=== PATIENT | female | born 1965 | race Caucasian/White ===

== ENCOUNTER → 2016-08-15 | Outpatient (CLI) | payer OTHER ==
[2015-09-19 14:55] VITALS: BP 104/60
[~2016-08-15] MED LIST: ASPI-482 PO; ATOR40TA PO; CLOP75TA PO; DOCU-109 PO; IBUP-1060 PO; LISI10TA2 PO; METO25TA9 PO; NITR0.4T22 SL; NITR2.5C3 PO; OXYC-323 PO
--- NOTE | 2016-08-15 13:58 | RAD ---
DATE: 08/15/2016 EXAM: DIGITAL DIAGNOSTIC BILATERAL HISTORY: Follow-up right breast nodule COMPARISON: 05/21/2015, 04/30/2015 CAD: This study was interpreted with the benefit of Computerized Aided Detection (CAD). The breast parenchyma shows scattered fibroglandular densities. Breast parenchyma level B. FINDINGS: A faint nodular opacity projected over the medial aspect of the right breast on the cc view is unchanged. Its stability over the last 15 months favors a benign etiology. Mammographic follow-up in one year is suggested. No new or enlarging breast densities are seen. Minimal benign type calcifications are present bilaterally. No suspicious microcalcifications have developed. IMPRESSION: Stable mammograms without evidence of malignancy. BI-RADS 3-probably benign findings RECOMMENDED FOLLOW-UP: 12M 12 MONTH FOLLOW-UP PQRS compliance statement: Patient information was entered into a reminder system with a target due date for the next mammogram. Mammography is a sensitive method for finding small breast cancers, but it does not detect them all and is not a substitute for careful clinical examination. A negative mammogram does not negate a clinically suspicious finding and should not result in delay in biopsying a clinically suspicious abnormality. "Our facility is accredited by the [employer] Mammography Program."
== END | disposition home or self-care (01) ==
LOC: MAMMO 13:13
PROVIDERS: ATTEND Internal Medicine
DX: N63 Unspecified lump in breast (principal)
CPT/HCPCS: G0204; 77066

== ENCOUNTER 2017-01-20 09:05 | Inpatient (IN) | payer OTHER ==
[~2017-01-20] VITALS: Ht 175.3 cm; Wt 69.7 kg
[~2017-01-20 09:05] MED LIST changes: +METO-239 PO; -METO25TA9 PO
[2017-01-20] MEDS ORDERED: IV NORMAL SALINE 1000ML BAG 1,000 ML IV SCH (09:18)
[2017-01-20] MEDS ORDERED: ONDANSETRON PF 4 MG/2 ML VIAL. ONE (09:19)
[2017-01-20 09:29] LABS: BASO % 0 % (0-3); EOS % 2 % (0-3); HEMATOCRIT 49.8 % (36.0-47.0); LYMPH # 0.9 x10^3/uL (1.0-4.8); LYMPH % 12 % (24-48); MEAN CORPUSCULAR HEMOGLOBIN 34 pg (25-35); MEAN CORPUSCULAR HGB CONC 34 g/dL (31-37); MEAN CORPUSCULAR VOLUME 99 fL (79-100); MONO % 3 % (0-9); NEUT % 83 % (31-73); PLATELET COUNT 209 x10^3/uL (140-400); RED BLOOD COUNT 5.03 x10^6/uL (3.50-5.40); RED CELL DISTRIBUTION WIDTH 13.4 % (11.5-14.5); WHITE BLOOD COUNT 7.4 x10^3/uL (4.0-11.0)
[2017-01-20] MEDS ORDERED: ASPIRIN CHEWABLE 81 MG TABLET. PO ONE (09:30)
[2017-01-20] MEDS ORDERED: fentaNYL PF VIAL 100 MCG/2 ML VIAL IV PRN (09:30)
--- NOTE | 2017-01-20 09:31 | EKG ---
[facility] [address] [place] [address] Test Date: 2017-01-20 Test Time: 09:13:52 Pat Name: CHRISTI BORJAS Department: Room: Gender: F Endodontic Assistant: : 1965 Requested By: KUNAL SKY Order Number: [id number] Reading MD: Measurements Intervals [place] Rate: 70 P: 47 AL: 132 QRS: 69 QRSD: 76 T: 65 QT: 372 QTc: 404 Interpretive Statements SINUS RHYTHM QRS(T) CONTOUR ABNORMALITY CANNOT RULE OUT ANTEROSEPTAL MYOCARDIAL DAMAGE BORDERLINE ECG No previous ECG available for comparison
[2017-01-20 09:48] LABS: CALCIUM 9.2 mg/dL (8.5-10.1); CREATININE 0.7 mg/dL (0.6-1.0); GFR 88.9; POTASSIUM 3.7 mmol/L (3.5-5.1)
[2017-01-20 09:54] LABS: ALBUMIN/GLOBULIN RATIO 1.1 (1.0-1.7); MAGNESIUM 1.8 mg/dL (1.8-2.4); TOTAL BILIRUBIN 0.6 mg/dL (0.2-1.0); TOTAL PROTEIN 7.6 g/dL (6.4-8.2)
[2017-01-20 10:03] LABS: CKMB MASS 1.6 ng/mL (0.0-3.6)
--- NOTE | 2017-01-20 10:03 | PHYS DOC ---
Past Medical History Past Medical History: High Cholesterol, Hypertension, VT, Other Additional Past Medical Histor: VT X2 LAST ONE 2 YRS AGO Past Surgical History: Hysterectomy, Tonsillectomy, Tubal ligation Alcohol Use: Occasionally Drug Use: None Adult General Chief Complaint Chief Complaint: CHEST PAIN HPI HPI Patient is a 51 year old female who presents with complaint of chest pain. Patient states that her symptoms started approximately 1 hour prior to arrival. Patient states that her symptoms started while she was working. Patient states she suddenly felt pressure-like chest pain and the middle of her chest. Patient has associated shortness of breath and nausea with her symptoms. Patient on arrival in the emergency department had an episode of vomiting. Patient states that her symptoms have improved since her episode of vomiting. The patient stated that her pain at its worse was proximally 5 out of 10. The patient does have history coronary artery disease and has had a myocardial infarction 2 years ago. Patient follows with Dr. Brantley of cardiology. Patient denies any associated fever or abdominal pain. Patient has not taken any medications for her symptoms. Review of Systems Review of Systems Constitutional: Denies fever or chills [] Eyes: Denies change in visual acuity, redness, or eye pain [] HENT: Denies nasal congestion or sore throat [] Respiratory: Shortness of breath[] Cardiovascular: Chest pain[] GI: Nausea, vomiting, denies abdominal pain, bloody stools or diarrhea [] : Denies dysuria or hematuria [] Musculoskeletal: Denies back pain or joint pain [] Integument: Denies rash or skin lesions [] Neurologic: Denies headache, focal weakness or sensory changes [] All other systems were reviewed and found to be within normal limits, except as documented in this note. Current Medications Current Medications Current Medications Medications (Trade) Dose Ordered Sig/Do Start Time Stop Time Status Last Admin Dose Admin Aspirin (Children'S Aspirin) 324 mg 1X ONCE 01/20/17 09:30 01/20/17 09:31 DC 01/20/17 09:46 324 MG Fentanyl Citrate (Fentanyl 2ml Vial) 50 mcg PRN Q15MIN PRN 01/20/17 09:30 01/21/17 09:29 01/20/17 09:48 50 MCG Ondansetron HCl (Zofran) 4 mg STK-MED ONCE 01/20/17 09:19 01/20/17 09:20 DC Sodium Chloride 1,000 ml @ 125 mls/hr Q8H 01/20/17 09:18 01/20/17 17:17 01/20/17 09:44 125 MLS/HR Allergies Allergies Allergies Coded Allergies Type Severity Reaction Last Updated Verified codeine Adverse Reaction Mild 08/02/15 Yes Physical Exam Physical Exam Constitutional: Alert, afebrile, appears in mild discomfort. [] HENT: Normocephalic, atraumatic, bilateral external ears normal, oropharynx moist, no oral exudates, nose normal. [] Eyes: PERRLA, EOMI, conjunctiva normal, no discharge. [] Neck: Normal range of motion, no tenderness, supple, no stridor. [] Cardiovascular:Heart rate regular rhythm, no murmur [] Lungs & Thorax: Bilateral breath sounds clear to auscultation [] Abdomen: Bowel sounds normal, soft, no tenderness, no masses, no pulsatile masses. [] Skin: Warm, dry, no erythema, no rash. [] Back: No tenderness, no CVA tenderness. [] Extremities: No tenderness, no cyanosis, no clubbing, ROM intact, no edema. [] Neurologic: Alert and oriented X 3, normal motor function, normal sensory function, no focal deficits noted. [] Current Patient Data Vital Signs Vital Signs Date Time Temp Pulse Resp B/P (MAP) Pulse Ox O2 Delivery O2 Flow Rate FiO2 01/20/17 09:48 18 95 Room Air 01/20/17 09:10 98.0 77 102/59 (73) 98.0 Lab Values Laboratory Tests Test 01/20/17 09:16 White Blood Count 7.4 x10^3/uL (4.0-11.0) Red Blood Count 5.03 x10^6/uL (3.50-5.40) Hemoglobin 17.0 g/dL (12.0-15.5) H Hematocrit 49.8 % (36.0-47.0) H Mean Corpuscular Volume 99 fL (79-100) Mean Corpuscular Hemoglobin 34 pg (25-35) Mean Corpuscular Hemoglobin Concent 34 g/dL (31-37) Red Cell Distribution Width 13.4 % (11.5-14.5) Platelet Count 209 x10^3/uL (140-400) Neutrophils (%) (Auto) 83 % (31-73) H Lymphocytes (%) (Auto) 12 % (24-48) L Monocytes (%) (Auto) 3 % (0-9) Eosinophils (%) (Auto) 2 % (0-3) Basophils (%) (Auto) 0 % (0-3) Neutrophils # (Auto) 6.2 x10^3uL (1.8-7.7) Lymphocytes # (Auto) 0.9 x10^3/uL (1.0-4.8) L Monocytes # (Auto) 0.2 x10^3/uL (0.0-1.1) Eosinophils # (Auto) 0.1 x10^3/uL (0.0-0.7) Basophils # (Auto) 0.0 x10^3/uL (0.0-0.2) Sodium Level 141 mmol/L (136-145) Potassium Level 3.7 mmol/L (3.5-5.1) Chloride Level 101 mmol/L (98-107) Carbon Dioxide Level 31 mmol/L (21-32) Anion Gap 9 (6-14) Blood Urea Nitrogen 19 mg/dL (7-20) Creatinine 0.7 mg/dL (0.6-1.0) Estimated GFR (Cockcroft-Gault) 88.9 BUN/Creatinine Ratio 27 (6-20) H Glucose Level 95 mg/dL (70-99) Calcium Level 9.2 mg/dL (8.5-10.1) Magnesium Level 1.8 mg/dL (1.8-2.4) Total Bilirubin 0.6 mg/dL (0.2-1.0) Aspartate Amino Transferase (AST) 24 U/L (15-37) Alanine Aminotransferase (ALT) 34 U/L (14-59) Alkaline Phosphatase 91 U/L (46-116) Creatine Kinase 123 U/L (26-192) Creatine Kinase MB (Mass) 1.6 ng/mL (0.0-3.6) Creatine Kinase MB Relative Index 1.3 % (0-4) Troponin I Quantitative < 0.017 ng/mL (0.000-0.055) YT-Fqi-I-Type Natriuretic Peptide 47 pg/mL (0-124) Total Protein 7.6 g/dL (6.4-8.2) Albumin 4.0 g/dL (3.4-5.0) Albumin/Globulin Ratio 1.1 (1.0-1.7) Lipase 116 U/L (73-393) Laboratory Tests 01/20/17 09:16 Laboratory Tests 01/20/17 09:16 EKG EKG Interpreted by me: Heart rate 70, sinus rhythm, normal intervals, normal axis, no acute ST/T-wave abnormalities present[] Radiology/Procedures Radiology/Procedures [facility] [address] [place] [address] IMAGING REPORT Signed PATIENT: CHRISTI BORJAS ACCOUNT: [id number] : 1965 LOCATION: [address] [place] [address] AGE: 51 SEX: F EXAM STATUS: ADM IN ORD. PHYSICIAN: KUNAL SKY MD REASON: chest pain PROCEDURE: PORTABLE CHEST 1V Portable chest, 01/20/2017: History: Chest pain The heart size and pulmonary vascularity are normal. There is a calcified granuloma in the left base. No acute infiltrate is seen. There is no evidence of pleural fluid. IMPRESSION: No acute cardiopulmonary abnormality is detected. DICTATED and SIGNED BY: EPI VILLAR MD DATE: 01/20/17 1022 CC: KUNAL SKY MD; RAMIN CRABTREE MD ~ [] Course & Med Decision Making Course & Med Decision Making Pertinent Labs and Imaging studies reviewed. (See chart for details) HEART score is 4. Patient's initial troponin level negative. Given patient's history and presence of typical symptoms for angina, the patient will need admission to the hospital for rule out of myocardial infarction. I spoke with Dr. Brantley of cardiology who agreed with initial management and will follow with patient in hospital. I spoke with Dr. Crabtree who accepted care patient in hospital. Dragon Disclaimer Dragon Disclaimer This electronic medical record was generated, in whole or in part, using a voice recognition dictation system. Departure Departure Impression: Primary Impression: Chest pain Additional Impressions: Coronary artery disease Hypertension Hyperlipidemia Disposition: ADMITTED INPATIENT Admitting Physician: Carey Davis Condition: STABLE Referrals: RAMIN CRABTREE MD (PCP) Problem Qualifiers Primary Impression: Chest pain Chest pain type: unspecified Qualified Codes: R07.9 - Chest pain, unspecified Additional Impressions: Coronary artery disease Coronary Disease-Associated Artery/Lesion type: [place] artery Lummi vs. transplanted heart: hamilton heart Associated angina: with unspecified angina Qualified Codes: I25.119 - Atherosclerotic heart disease of [place] coronary artery with unspecified angina pectoris Hypertension Hypertension type: essential hypertension Qualified Codes: I10 - Essential ( primary) hypertension Hyperlipidemia Hyperlipidemia type: unspecified Qualified Codes: E78.5 - Hyperlipidemia, unspecified KUNAL SKY MD Jan 20, 2017 10:03
--- NOTE | 2017-01-20 10:26 | RAD ---
Portable chest, 01/20/2017: History: Chest pain The heart size and pulmonary vascularity are normal. There is a calcified granuloma in the left base. No acute infiltrate is seen. There is no evidence of pleural fluid. IMPRESSION: No acute cardiopulmonary abnormality is detected.
[2017-01-20] MEDS: IV NORMAL SALINE 1000ML BAG 1,000 ML IV SCH ×2 (10:35→18:08)
[2017-01-20] MEDS ORDERED: ONDANSETRON PF 4 MG/2 ML VIAL. IV PRN (10:45)
[2017-01-20 10:56] LABS: BILIRUBIN,URINE NEGATIVE (NEG); GLUCOSE,URINE NEGATIVE (NEG); NITRITE,URINE NEGATIVE (NEG); PROTEIN,URINE NEGATIVE (NEG-TRACE); UROBILINOGEN,URINE 0.2 mg/dL (0.2 mg/dL)
[2017-01-20 11:12] LABS: BACTERIA,URINE FEW /HPF (0-FEW); RBC,URINE 0 /HPF (0-2); SQUAMOUS EPITHELIAL CELL,UR MOD /LPF
[2017-01-20 11:37] VITALS: BP 106/46
[2017-01-20 14:30] VITALS: BP 115/57
[2017-01-20] MEDS ORDERED: NITROGLYCERIN SUBLINGUAL 0.4 MG BOTTLE OF 25. SL PRN (17:30)
[2017-01-20 19:00] VITALS: BP 106/59
--- NOTE | 2017-01-20 19:15 | PDOC2 ---
CONSULT Date of Consult Date of Consult DATE: 01/20/17 TIME: 19:11 Reason for Consult Reason for Consult: Chest pain Referring Physician Referring Physician: Dr. Hurst Identification/Chief Complaint Chief Complaint Chest pain Problems: History of Present Illness Reason for Visit: This patient is a 51-year-old lady with a known history of coronary artery disease that had a previous GA over 2 years ago. She is a smoker and is very active and works about 12 hours a day. The patient was at work when she developed some chest pains that were rather severe and just brought her into the hospital. The EKG has not shown any significant ST segment changes and the first set of enzymes has been negative. At the time that I saw her the patient denies having any chest pains. Past Medical History Cardiovascular: CAD, HTN, GA Pulmonary: COPD Current Problem List Problem List Problems Medical Problems: (1) Chest pain Status: Acute (2) Coronary artery disease Status: Acute (3) Hyperlipidemia Status: Acute (4) Hypertension Status: Acute Current Medications Current Medications Current Medications Aspirin (Children'S Aspirin) 324 mg 1X ONCE PO Last administered on 09:46; Start 01/20/17 at 09:30; Stop 01/20/17 at 09:31; Status DC Fentanyl Citrate (Fentanyl 2ml Vial) 50 mcg PRN Q15MIN PRN IV PAIN GREATER THAN 3/10 Last administered on 01/20/17 09:48; Start 01/20/17 at 09:30; Stop 01/21/17 at 09:29 Sodium Chloride 1,000 ml @ 125 mls/hr Q8H IV Last administered on 01/20/17 09:44; Start 01/20/17 at 09:18; Stop 01/20/17 at 17:17; Status DC Ondansetron HCl (Zofran) 4 mg STK-MED ONCE .ROUTE ; Start 01/20/17 at 09:19; Stop 01/20/17 at 09:20; Status DC Ondansetron HCl (Zofran) 4 mg PRN Q8HRS PRN IV NAUSEA/VOMITING; Start at 10:45; Stop 01/21/17 at 10:44 Sodium Chloride 1,000 ml @ 125 mls/hr Q8H IV Last administered on 01/20/17 18:08; Start 01/20/17 at 10:35; Stop 01/21/17 at 10:34 Acetaminophen (Tylenol) 650 mg PRN Q4HRS PRN PO FEVER; Start 01/20/17 at 10:45 ; Stop 01/21/17 at 10:44 Aspirin (Ecotrin) 81 mg DAILY08 PO ; Start 01/21/17 at 08:00 Atorvastatin Calcium (Lipitor) 40 mg QHS PO ; Start 01/20/17 at 21:00 Clopidogrel Bisulfate (Plavix) 75 mg DAILY07 PO ; Start 01/21/17 at 07:00 Metoprolol Succinate (Toprol Xl) 25 mg DAILY PO ; Start 01/21/17 at 09:00 Nitroglycerin (Nitrostat) 0.4 mg PRN Q5MIN PRN SL CHEST PAIN; Start 01/20/17 at 17:30 Active Scripts Active Reported NITROGLYCERIN SubLingual (Nitroglycerin) 0.4 Mg Tab.subl 1 Tab SL UD Lipitor (Atorvastatin Calcium) 40 Mg Tablet 40 Mg PO DAILY Aspir 81 (Aspirin) 81 Mg Tablet.dr 1 Tab PO DAILY Metoprolol Succinate ( Xl ) (Metoprolol Succinate) 25 Mg Tab.er.24h 1 Tab PO DAILY Clopidogrel (Clopidogrel Bisulfate) 75 Mg Tablet 1 Tab PO DAILY Allergies Allergies: Coded Allergies: No Known Medication Allergies (Verified Allergy, Unknown, 01/20/17) codeine (Verified Adverse Reaction, Mild, 08/02/15) FEELS VERY "HOT" Physical Exam General: Alert, Oriented X3, Cooperative HEENT: Atraumatic, PERRLA Lungs: Clear to auscultation Heart: Regular rate, Normal S1, Normal S2 Abdomen: Normal bowel sounds, Soft Extremities: No edema Psych/Mental Status: Mental status NL Vitals VITALS Vital Signs Date Time Temp Pulse Resp B/P (MAP) Pulse Ox O2 Delivery O2 Flow Rate FiO2 01/20/17 14:30 98.6 80 18 115/57 (76) 93 Room Air 98.6 Labs Labs Laboratory Tests Test 01/20/17 09:16 01/20/17 10:47 01/20/17 13:00 01/20/17 16:00 White Blood Count 7.4 x10^3/uL (4.0-11.0) Red Blood Count 5.03 x10^6/uL (3.50-5.40) Hemoglobin 17.0 g/dL (12.0-15.5) Hematocrit 49.8 % (36.0-47.0) Mean Corpuscular Volume 99 fL (79-100) Mean Corpuscular Hemoglobin 34 pg (25-35) Mean Corpuscular Hemoglobin Concent 34 g/dL (31-37) Red Cell Distribution Width 13.4 % (11.5-14.5) Platelet Count 209 x10^3/uL (140-400) Neutrophils (%) (Auto) 83 % (31-73) Lymphocytes (%) (Auto) 12 % (24-48) Monocytes (%) (Auto) 3 % (0-9) Eosinophils (%) (Auto) 2 % (0-3) Basophils (%) (Auto) 0 % (0-3) Neutrophils # (Auto) 6.2 x10^3uL (1.8-7.7) Lymphocytes # (Auto) 0.9 x10^3/uL (1.0-4.8) Monocytes # (Auto) 0.2 x10^3/uL (0.0-1.1) Eosinophils # (Auto) 0.1 x10^3/uL (0.0-0.7) Basophils # (Auto) 0.0 x10^3/uL (0.0-0.2) Sodium Level 141 mmol/L (136-145) Potassium Level 3.7 mmol/L (3.5-5.1) Chloride Level 101 mmol/L (98-107) Carbon Dioxide Level 31 mmol/L (21-32) Anion Gap 9 (6-14) Blood Urea Nitrogen 19 mg/dL (7-20) Creatinine 0.7 mg/dL (0.6-1.0) Estimated GFR (Cockcroft-Gault) 88.9 BUN/Creatinine Ratio 27 (6-20) Glucose Level 95 mg/dL (70-99) Calcium Level 9.2 mg/dL (8.5-10.1) Magnesium Level 1.8 mg/dL (1.8-2.4) Total Bilirubin 0.6 mg/dL (0.2-1.0) Aspartate Amino Transf (AST/SGOT) 24 U/L (15-37) Alanine Aminotransferase (ALT/SGPT) 34 U/L (14-59) Alkaline Phosphatase 91 U/L (46-116) Creatine Kinase 123 U/L (26-192) Creatine Kinase MB (Mass) 1.6 ng/mL (0.0-3.6) Creatine Kinase MB Relative Index 1.3 % (0-4) Troponin I Quantitative < 0.017 ng/mL (0.000-0.055) < 0.017 ng/mL (0.000-0.055) < 0.017 ng/mL (0.000-0.055) BN-Upp-H-Type Natriuretic Peptide 47 pg/mL (0-124) Total Protein 7.6 g/dL (6.4-8.2) Albumin 4.0 g/dL (3.4-5.0) Albumin/Globulin Ratio 1.1 (1.0-1.7) Lipase 116 U/L (73-393) Urine Collection Type Unknown Urine Color Yellow Urine Clarity Clear Urine pH 6.0 Urine Specific [place] 1.025 Urine Protein Negative mg/dL (NEG-TRACE) Urine Glucose (UA) Negative mg/dL (NEG) Urine Ketones (Stick) 15 mg/dL (NEG) Urine Blood Negative (NEG) Urine Nitrite Negative (NEG) Urine Bilirubin Negative (NEG) Urine Urobilinogen Dipstick 0.2 mg/dL (0.2 mg/dL) Urine Leukocyte Esterase Negative (NEG) Urine RBC 0 /HPF (0-2) Urine WBC 1-4 /HPF (0-4) Urine Squamous Epithelial Cells Mod /LPF Urine Bacteria Few /HPF (0-FEW) Urine Mucus Mod /LPF Laboratory Tests Test 01/20/17 09:16 01/20/17 10:47 01/20/17 13:00 01/20/17 16:00 White Blood Count 7.4 x10^3/uL (4.0-11.0) Red Blood Count 5.03 x10^6/uL (3.50-5.40) Hemoglobin 17.0 g/dL (12.0-15.5) Hematocrit 49.8 % (36.0-47.0) Mean Corpuscular Volume 99 fL (79-100) Mean Corpuscular Hemoglobin 34 pg (25-35) Mean Corpuscular Hemoglobin Concent 34 g/dL (31-37) Red Cell Distribution Width 13.4 % (11.5-14.5) Platelet Count 209 x10^3/uL (140-400) Neutrophils (%) (Auto) 83 % (31-73) Lymphocytes (%) (Auto) 12 % (24-48) Monocytes (%) (Auto) 3 % (0-9) Eosinophils (%) (Auto) 2 % (0-3) Basophils (%) (Auto) 0 % (0-3) Neutrophils # (Auto) 6.2 x10^3uL (1.8-7.7) Lymphocytes # (Auto) 0.9 x10^3/uL (1.0-4.8) Monocytes # (Auto) 0.2 x10^3/uL (0.0-1.1) Eosinophils # (Auto) 0.1 x10^3/uL (0.0-0.7) Basophils # (Auto) 0.0 x10^3/uL (0.0-0.2) Sodium Level 141 mmol/L (136-145) Potassium Level 3.7 mmol/L (3.5-5.1) Chloride Level 101 mmol/L (98-107) Carbon Dioxide Level 31 mmol/L (21-32) Anion Gap 9 (6-14) Blood Urea Nitrogen 19 mg/dL (7-20) Creatinine 0.7 mg/dL (0.6-1.0) Estimated GFR (Cockcroft-Gault) 88.9 BUN/Creatinine Ratio 27 (6-20) Glucose Level 95 mg/dL (70-99) Calcium Level 9.2 mg/dL (8.5-10.1) Magnesium Level 1.8 mg/dL (1.8-2.4) Total Bilirubin 0.6 mg/dL (0.2-1.0) Aspartate Amino Transf (AST/SGOT) 24 U/L (15-37) Alanine Aminotransferase (ALT/SGPT) 34 U/L (14-59) Alkaline Phosphatase 91 U/L (46-116) Creatine Kinase 123 U/L (26-192) Creatine Kinase MB (Mass) 1.6 ng/mL (0.0-3.6) Creatine Kinase MB Relative Index 1.3 % (0-4) Troponin I Quantitative < 0.017 ng/mL (0.000-0.055) < 0.017 ng/mL (0.000-0.055) < 0.017 ng/mL (0.000-0.055) UV-Rjr-N-Type Natriuretic Peptide 47 pg/mL (0-124) Total Protein 7.6 g/dL (6.4-8.2) Albumin 4.0 g/dL (3.4-5.0) Albumin/Globulin Ratio 1.1 (1.0-1.7) Lipase 116 U/L (73-393) Urine Collection Type Unknown Urine Color Yellow Urine Clarity Clear Urine pH 6.0 Urine Specific [place] 1.025 Urine Protein Negative mg/dL (NEG-TRACE) Urine Glucose (UA) Negative mg/dL (NEG) Urine Ketones (Stick) 15 mg/dL (NEG) Urine Blood Negative (NEG) Urine Nitrite Negative (NEG) Urine Bilirubin Negative (NEG) Urine Urobilinogen Dipstick 0.2 mg/dL (0.2 mg/dL) Urine Leukocyte Esterase Negative (NEG) Urine RBC 0 /HPF (0-2) Urine WBC 1-4 /HPF (0-4) Urine Squamous Epithelial Cells Mod /LPF Urine Bacteria Few /HPF (0-FEW) Urine Mucus Mod /LPF Assessment/Plan Assessment/Plan This patient with a known history of coronary artery disease comes in with an episode of chest pains. So far the enzymes have been negative and the EKGs showed no change. In view of this I would recommend to do a stress MPI in the morning. Depending on the results of that test will then make further recommendations. Thank you very much for asking me to participate in the care of this patient. JULES GARRISON MD Jan 20, 2017 19:15
[2017-01-20] MEDS: ACETAMINOPHEN 325 MG TABLET. PO PRN (19:53)
[2017-01-20] MEDS ORDERED: ATORVASTATIN CALCIUM 40 MG TABLET. PO SCH (21:00)
[2017-01-20] MEDS ORDERED: ENOXAPARIN 40 MG/0.4 ML SYRINGE. SQ SCH (22:00)
[2017-01-20 23:00] VITALS: BP 100/47
[2017-01-21] MEDS: IV NORMAL SALINE 1000ML BAG 1,000 ML IV SCH (02:35)
[2017-01-21 03:00] VITALS: BP 105/51
[2017-01-21] MEDS: CLOPIDOGREL BISULFATE 75 MG TABLET PO SCH ×2 (05:02→11:46)
[2017-01-21 05:46] LABS: BASO % 1 % (0-3); EOS % 6 % (0-3); HEMATOCRIT 44.5 % (36.0-47.0); HEMOGLOBIN 14.9 g/dL (12.0-15.5); LYMPH # 0.9 x10^3/uL (1.0-4.8); LYMPH % 19 % (24-48); MEAN CORPUSCULAR HEMOGLOBIN 34 pg (25-35); MEAN CORPUSCULAR HGB CONC 34 g/dL (31-37); MEAN CORPUSCULAR VOLUME 100 fL (79-100); MONO % 13 % (0-9); NEUT % 62 % (31-73); PLATELET COUNT 169 x10^3/uL (140-400); RED BLOOD COUNT 4.45 x10^6/uL (3.50-5.40); RED CELL DISTRIBUTION WIDTH 13.7 % (11.5-14.5); WHITE BLOOD COUNT 4.6 x10^3/uL (4.0-11.0)
[2017-01-21 06:28] LABS: CALCIUM 8.3 mg/dL (8.5-10.1); CREATININE 0.6 mg/dL (0.6-1.0); GFR 106.3; POTASSIUM 4.4 mmol/L (3.5-5.1)
[2017-01-21 06:29] LABS: CHOLESTEROL/HDL RATIO 1.6
[2017-01-21 07:00] VITALS: BP 111/40
[2017-01-21] MEDS: ACETAMINOPHEN 325 MG TABLET. PO PRN (07:48)
[2017-01-21] MEDS ORDERED: ASPIRIN ENTERIC COATED 81 MG TABLET.DR. PO SCH (08:00)
[2017-01-21] MEDS ORDERED: METOPROLOL SUCC 24HR ER 25 MG TAB.ER.24H. PO SCH (09:00)
--- NOTE | 2017-01-21 10:17 | PDOC ---
Provider Note Provider Note Pt seen.H&P dictated. #[id number] RAMIN CRABTREE MD Jan 21, 2017 10:17
[2017-01-21 10:35] VITALS: BP 115/52
--- NOTE | 2017-01-21 10:35 | HP ---
ADMIT DATE: 01/20/2017 ATTENDING PHYSICIAN: Dr. Hurst. REASON FOR ADMISSION TO THE HOSPITAL: Chest pain. The patient has a known history of coronary artery disease. HISTORY OF PRESENT ILLNESS: The patient is a 51-year-old female with history of coronary artery disease, had a heart attack 2 years ago, had a small vessel disease, was recommended medical management. She is a smoker, still smoking and she developed chest pain, left side, came to the Emergency Room. EKG negative and cardiac enzymes negative, was seen by Cardiology who recommended admission to the hospital. PAST MEDICAL HISTORY: Hypertension, coronary artery disease, myocardial infarction, chronic obstructive pulmonary disease. PAST SURGICAL HISTORY: Had a cardiac catheterization 2 years ago, small vessel disease. ALLERGIES: CODEINE. OTHER ALLERGIES NEGATIVE. HOME MEDICATIONS: Aspirin 81 mg daily, atorvastatin 40 mg daily, Plavix 75 mg daily, metoprolol 25 mg daily, nitro sublingual. PERSONAL HISTORY: Smoker 1 pack for 30 years, still smoking. Denies alcohol or street drugs. FAMILY HISTORY: Positive for heart disease in mother. REVIEW OF SYMPTOMS: CARDIAC: Chest pain when she came in, now she feels better, no more chest pains. GASTROINTESTINAL: No nausea or vomiting. NEUROLOGICAL: No weakness. The rest of the 14 systems was reviewed and negative. PHYSICAL EXAMINATION: VITAL SIGNS: At the time of admission shows temperature 98, pulse 77, respirations 13, blood pressure 102/59, 100% room air. HEENT: Head is atraumatic. Pupils equal. Oral cavity: No congestion. NECK: Supple. Thyroid not enlarged. JVD not elevated. CHEST: Symmetrical. CARDIOVASCULAR: S1, S2. LUNGS: Clear. ABDOMEN: Soft. EXTERNAL GENITALIA: Deferred. RECTAL: Deferred. EXTREMITIES: No calf tenderness, no edema. NEUROLOGIC: No focal deficits. Moving all extremities. LABORATORY DATA: Shows a white count of 7, hemoglobin 17, platelets are 209. Electrolytes show sodium 141, potassium 3.7, chloride 101, bicarbonate 31, BUN 19, creatinine 0.7, glucose 95. Troponin was negative. Urine was negative. Chest x-ray was negative. EKG negative for ischemia. FINAL IMPRESSION: 1. Chest pain, for cardiac evaluation. 2. Known history of myocardial infarction 2 years ago, had a cardiac catheterization that showed small vessel disease. Recommend medical treatment. 3. Chronic obstructive pulmonary disease, smoking. PLAN: At this time, the patient was admitted to the hospital. Cardiac enzymes, EKG. Cardiology consult, Dr. Brantley. Stress test today and if it is okay, probably could be discharged home. Smoking counseling. RAMIN HURST MD DR: TIN/aaron JOB#: [id number] / [id number]
[2017-01-21 11:47] VITALS: BP 115/52
--- NOTE | 2017-01-21 12:05 | RAD ---
APPROVED REPORT Test Type: Exercise Stress Nurse/Tech: Mary Keane R.N. Test Indications: c/p Cardiac History: htn, CAD, smoker Medications: Zocor Medical History: See Electronic Medical Record Resting ECG: SR Resting Heart Rate: 62 bpm Resting Blood Pressure: 96/54mmHg Pretest Chest Pain: No chest pain Nurse/Tech Notes S1S2, lungs- wheeze in ÁLVARO and RLL, has chronic moist congested cough Consent: The procedure was explained to the patient in lay terms. Informed consent was witnessed. Portillo eout was entered into [employer]. History and Stress Test performed by RT Marie (R) (N) Stress Symptoms some dyspnea POST EXERCISE Reason for Termination: Reached target heart rate Target HR: Yes Max HR: 163 bpm 95% of Maximum Predicted HR: 171 bpm Exercise duration: 10:30 min:sec, 4 Stage Exercise capacity: 13.4METs Max Blood Pressure: 138/70mmHg Blood Pressure response to exercise: Normal blood pressure response during stress. Heart Rate response to exercise: wnl Chest Pain: No. Arrhythmia: No. ST Change: No. INTERPRETATION Stress EKG Conclusion: The resting EKG showed a normal sinus rhythm with nonspecific ST-T wave change s and a small septal Q waves. The stress EKG showed no significant changes from baseline. There was one couplet during exercise. No EKG evidence of stressed induced ischemia. Imaging Protocol IMAGE PROTOCOL: Rest Tc-99m/stress Tc-99m 1 day Rest: Stress: Viability: Radiopharm.Tc99m [id number] Sestamibi [id number] 32mCi Duration 15min. 10min. Img Date 01/21/2017 01/21/2017 Inj-Img [id number]. 60min. Rest Admin Site:IV - Right AntecubitalAdministrator:RT Marie (R)(N) Stress Admin Site: IV - Right AntecubitalAdministrator: RT Yassine (R)(N) STRESS DATA End Diast. Vol.100.0mlAv. Heart Rate60.0bpm End Syst. Vol.28.0mlCO Index BSA0.0L/min Myocardial Pjsu789.0gEject. Xxogjabh33.0% Stress Rates Pk. Fill Rate2.93EDV/secLVtime Pk. Fill 177.14msec Pk. Empty Rate3.32ESV/secLVtime Pk. Dvxek930.24msec 02/11 Pk. Fill1.86EDV/sec Stress Scores Regional WT0.00Summed WT0.00 Regional WM0.00Summed WM0.00 LV Perfusion The stress scans showed no significant defects. The rest scans showed no significant defects. Nuclear imaging showed no reversible ischemia or infarct. Wall Motion Normal left ventricular systolic function with an ejection fraction of greater than 70%. LV Perf. Quant 17 Seg. SSS0.00 17 Seg. SRS0.00 17 Seg. SDS0.00 Stress Defect Extent (% LAD)0.00Rest Defect Extent (% LAD)0.00Rev. Defect Extent (% LAD)0.00 Stress Defect Extent (% LCX) 0.00Rest Defect Extent (% LCX)0.00Rev. Defect Extent (% LCX)0.00 Stress Defect Extent (% RCA)0.00Rest Defect Extent (% RCA)0.00Rev. Defect Extent (% RCA)0.00 Stress Defect Extent (% DESIREE)0.00Rest Defect Extent (% DESIREE)0.00Rev. Defect Extent (% DESIREE)0.00 Conclusion 1. Good exercise tolerance with the patient walking for 10 minutes and 30 seconds on a Luca protocol . 2. No EKG evidence of stressed induced ischemia. 3. Nuclear imaging shows no reversible ischemia or infarct. 4. Normal left ventricular systolic function with an ejection fraction of greater than 70%. 5. Low risk treadmill nuclear stress test.
--- NOTE | 2017-01-22 15:48 | PDOC ---
Provider Note Provider Note Discharge summary dictated. #[id number] RAMIN CRABTREE MD Jan 22, 2017 15:47
--- NOTE | 2017-01-22 18:58 | DS ---
DATE OF DISCHARGE: 01/21/2017 ATTENDING PHYSICAIN: Ramin Hurst MD CONSULTATIONS: Dr. Brantley. PROCEDURES DONE: Lexiscan stress test. COMPLICATIONS NOTED: None. HOSPITAL COURSE: The patient is a 51-year-old female with history of coronary artery disease, CA 2 years ago, had a cardiac catheterization, small vessel disease, came with chest pain. Cardiac enzymes and EKG was negative, was seen by Cardiology, scheduled for a stress test, which came back negative for any ischemia, normal left ventricular function, more than 70%, no reversible ischemia and the patient was discharged. FINAL DIAGNOSES: 1. Noncardiac chest pain.stress test neg for ischemia, GERD? 2. Known history of coronary artery disease, history of myocardial infarction in the past, small vessel disease. Medical treatment. 3. Hypertension. 4. Smoking. 5. Hyperlipidemia. DISPOSITION: Home. DISCHARGE MEDICATIONS: See MRAD for discharge medications. RAMIN HURST MD DR: TIN/nts JOB#: [id number] / [id number] MTDD
== END 2017-01-21 13:20 | disposition home or self-care (01) | DRG 392 ==
LOC: ER 09:05 → 5 NORTH 10:04
PROVIDERS: ADMIT Internal Medicine; ATTEND Internal Medicine
DX: K21.9 Gastro-esophageal reflux disease without esophagitis (principal); E78.5 Hyperlipidemia, unspecified; R07.89 Other chest pain; I25.119 Atherosclerotic heart disease of native coronary artery with unspecified angina pectoris; F17.210 Nicotine dependence, cigarettes, uncomplicated; I73.9 Peripheral vascular disease, unspecified; J44.9 Chronic obstructive pulmonary disease, unspecified; I10 Essential (primary) hypertension; I25.2 Old myocardial infarction; Z90.710 Acquired absence of both cervix and uterus; Z98.61 Coronary angioplasty status; Z71.6 Tobacco abuse counseling; Z90.49 Acquired absence of other specified parts of digestive tract; Z98.51 Tubal ligation status
CPT/HCPCS: 36415; 71010; 78452; 80048; 80053; 80061; 81001; 82553; 83690; 83735; 83880; 84484; 85025; 93005; 93017; 96361; 96374; 96376; 99407; A9500; J3010; J7030; 99285-25